=== PATIENT | female | born 1940 | race Caucasian/White ===

== ENCOUNTER 2019-12-02 11:02 | Outpatient (CLI) | payer MEDICARE, SELFPAY ==
--- NOTE | ~2019-12-02 | MM_ITS ---
EXAMINATION: MM screening aureliano BI w janene HISTORY: Screening mammogram TECHNIQUE: Craniocaudal and mediolateral oblique 3-D tomosynthesis images were obtained and synthetic 2-D images were generated. CAD analysis was submitted and interpreted. COMPARISON: 07/28/2017 BREAST PARENCHYMAL COMPOSITION: There are scattered areas of fibroglandular density. FINDINGS: There is no evidence of suspicious mass, calcification, or architectural distortion to sugg est malignancy in either breast. There has been no suspicious interval change. IMPRESSION: 1. No mammographic evidence of malignancy. 2. Recommend routine screening mammography in one year. BI-RADS Category 1: Negative Reviewed, dictated and finalized at location A.
== END 2019-12-02 11:03 | disposition home or self-care (01) ==
PROVIDERS: PCP Family Medicine; Visit Provider Nurse Practitioner Family
DX: Z12.31 Encounter for screening mammogram for malignant neoplasm of breast (principal)
CPT/HCPCS: 77063; 77067

== ENCOUNTER 2019-12-03 07:28 | Outpatient (CLI) | payer MEDICARE, SELFPAY ==
--- NOTE | ~2019-12-03 | US_ITS ---
EXAMINATION: US right upper quadrant DATE: 12/03/2019 07:58 INDICATION: Right upper quadrant abdominal pain. TECHNIQUE: Multiple grayscale and Doppler ultrasound images of the abdomen were obtained. COMPARISON: None FINDINGS: The visualized portions of the head and body of the pancreas are normal. The liver is crystal l without focal lesion. There is normal flow in main portal vein. The gallbladder is normal in size a nd contains gallstones. No gallbladder wall thickening or sonographic Zarate sign. The common duct is normal and measures 4 mm. IMPRESSION: 1. Cholelithiasis. No evidence of acute cholecystitis. Reviewed, dictated and finalized at location E.
[2019-12-03 08:52] LABS: Basophils Absolute Auto 0.1 K/mm3 (0.0-0.1); Basophils Percent Auto 0.9 % (0.2-1.2); Eosinophils Absolute Auto 0.1 K/mm3 (0-0.3); Eosinophils Percent Auto 1.8 % (0-4.4); Hematocrit 37.6 % (37.0-47.0); Hemoglobin 12.6 g/dL (12.0-15.0); Immature Granulocyte Absolute 0.02 K/mm3 (0.00-0.031); Immature Granulocyte Percent A 0.3 % (0-0.5); Lymphocytes Percent Auto 20.5 % (18.3-44.2); Mean Corpuscular HGB Conc 33.5 g/dl (32-36); Mean Corpuscular Hemoglobin 29.2 pg (26-34); Mean Platelet Volume 9.2 fl (7.4-10.4); Monocytes Absolute Auto 0.6 K/mm3 (0.1-0.6); Monocytes Percent Auto 8.6 % (2.6-8.5); Neutrophils Absolute Auto 4.7 K/mm3 (1.3-6.7); Neutrophils Percent Auto 67.9 % (45.5-73.1); Platelet Count Result 285 k/mm3 (150-375); Red Blood Count 4.32 M/mm3 (4.2-5.4); Red Cell Distribution Width 13.8 % (11.5-14.5); White Blood Count 6.8 K/mm3 (4.5-10.0)
[2019-12-03 09:00] LABS: Hemoglobin A1C 5.8 % (<5.7)
[2019-12-03 09:04] LABS: Alanine Aminotransferase 16 U/L (4-35); Albumin Level 4.5 g/dL (3.5-5.1); Alkaline Phosphatase 68 U/L (38-126); Amylase 61 U/L (30-110); Aspartate Amino Transferase 24 U/L (14-36); Bilirubin,Total 0.4 mg/dL (0.2-1.3); Blood Urea Nitrogen 21 mg/dL (7-17); Calcium 9.1 mg/dL (8.4-10.2); Carbon Dioxide 28 mmol/L (22-30); Chloride 99 mmol/L (98-107); Cholesterol 208 mg/dL (0-200); Estimated Glomerular Filt Rate 44; Glucose 100 mg/dL (65-105); HDL Direct 50 mg/dL; Lipase 128 U/L (23-300); Potassium 3.9 mmol/L (3.4-5.0); Sodium 136 mmol/L (137-145); Triglycerides 119 mg/dL (<150)
[2019-12-03 09:15] LABS: LDL Cholesterol Direct 123 mg/dL
[2019-12-03 09:33] LABS: Total Triiodothyronine (T3) 1.64 NG/ML (0.97-1.69)
[2019-12-03 09:50] LABS: Free T4 Free Thyroxine 1.07 ng/mL (0.78-2.19); Vitamin D 25 Hydroxy 66.3 ng/mL
== END 2019-12-03 07:29 | disposition home or self-care (01) ==
PROVIDERS: Nurse Practitioner Family; PCP Family Medicine; Visit Provider Family Medicine
DX: R10.11 Right upper quadrant pain (principal); R14.0 Abdominal distension (gaseous); I10 Essential (primary) hypertension; E78.2 Mixed hyperlipidemia; R73.01 Impaired fasting glucose; E55.9 Vitamin D deficiency, unspecified; Z13.0 Encounter for screening for diseases of the blood and blood-forming organs and certain disorders involving the immune mechanism; Z13.6 Encounter for screening for cardiovascular disorders; Z13.220 Encounter for screening for lipoid disorders; Z13.29 Encounter for screening for other suspected endocrine disorder; Z13.1 Encounter for screening for diabetes mellitus; R80.9 Proteinuria, unspecified
CPT/HCPCS: 36415; 76705; 80053; 80061; 82150; 82306; 83036; 83690; 84439; 84443; 84480; 85025

== ENCOUNTER 2020-06-11 14:48 | Outpatient (CLI) | payer MEDICARE, SELFPAY ==
[2020-06-11 16:03] LABS: Total Triiodothyronine (T3) 1.05 NG/ML (0.97-1.69)
[2020-06-11 16:10] LABS: Free T4 Free Thyroxine 1.02 ng/mL (0.78-2.19)
== END 2020-06-11 14:49 | disposition home or self-care (01) ==
PROVIDERS: PCP Family Medicine; Visit Provider Nurse Practitioner
DX: F41.9 Anxiety disorder, unspecified (principal); F51.05 Insomnia due to other mental disorder; L65.9 Nonscarring hair loss, unspecified
CPT/HCPCS: 36415; 84439; 84443; 84480

== ENCOUNTER 2020-12-11 10:35 | Outpatient (CLI) | payer MEDICARE, SELFPAY ==
--- NOTE | ~2020-12-11 | MMUS_ITS ---
EXAMINATION: MM diagnostic aureliano BI w janene, US breast RT limited HISTORY: Pain at the 12:00 location of the right breast TECHNIQUE: Craniocaudal, mediolateral, and mediolateral oblique 3-D tomosynthesis images of the breas ts were performed and synthetic 2-D images were generated. CAD analysis was submitted and interpreted . High resolution limited right breast ultrasound was performed. COMPARISON: 12/02/2019, 07/28/2017, 07/02/2008 BREAST PARENCHYMAL COMPOSITION: The breasts are almost entirely fatty. FINDINGS: MAMMOGRAPHIC FINDINGS: There is no evidence of suspicious mass, calcification, or architectural distortion in either breast to suggest malignancy. There has been no suspicious interval change. ULTRASOUND: There is no evidence of focal abnormal solid or cystic mass in the vicinity of the patient's reported right breast pain. IMPRESSION: 1. No specific mammographic or sonographic correlate is identified for the patient's reported right b reast pain Further evaluation at this time should be based on clinical assessment. Continued follow-u p physical examination is recommended. 2. Recommend routine screening mammography in one year. BI-RADS Category 1: Negative Reviewed, dictated and finalized at location A. IMPRESSION: 1. No specific mammographic or sonographic correlate is identified for the tamie ent's reported right breast pain Further evaluation at this time should be base d on clinical assessment. Continued follow-up physical examination is recommend ed. 2. Recommend routine screening mammography in one year. BI-RADS Category 1: Negative
== END 2020-12-11 10:36 | disposition home or self-care (01) ==
LOC: ANHIMG 10:37
PROVIDERS: PCP Family Medicine; Visit Provider Nurse Practitioner
DX: N64.4 Mastodynia (principal)
CPT/HCPCS: 76642; 77062; 77066; G0279

== ENCOUNTER → 2021-03-16 04:04 | Outpatient (CLI) | payer MEDICARE, SELFPAY ==
[2021-03-16 18:19] LABS: SARS-CoV-2 RNA PCR Negative
== END ==
PROVIDERS: PCP Family Medicine; Visit Provider Family Medicine
DX: Z20.822 Contact with and (suspected) exposure to COVID-19 (principal)
CPT/HCPCS: C9803; U0003; U0005

== ENCOUNTER 2021-04-13 09:05 | Outpatient (CLI) | payer MEDICARE, SELFPAY ==
--- NOTE | ~2021-04-13 | XR_ITS ---
EXAMINATION:XR cervical spine 4-5V DATE: 04/13/2021 10:37 INDICATION: Neck pain TECHNIQUE: AP, lateral, lateral swimmers and odontoid views of the cervical spine are provided. COMPARISON: None FINDINGS: Alignment is normal. The odontoid is intact. No fracture is identified. The vertebral body heights are normal. There is severe loss of intervertebral disc space height at C4-5 and moderate los s of intervertebral disc space height at C3-4 and C5-6. Small degenerative osteophytes project from t he anterior endplates of multiple vertebral bodies. There is moderate multilevel facet and uncoverteb ral joint osteoarthritis Prevertebral soft tissues are normal. IMPRESSION: 1. Moderate cervical spondylosis without acute findings. Reviewed, dictated and finalized at location A.
--- NOTE | ~2021-04-13 | XR_ITS ---
XR shoulder RT min 2V 04/13/2021 10:37 Indication: Shoulder pain Procedure: 4 views right shoulder Comparison: 4 views right shoulder Findings: There is advanced osteoarthritis the right shoulder including the glenohumeral and acromioclavicular joints. No fracture or traumatic malalignment. No significant soft tissue abnormality. No foreign bod ies. 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 Reviewed, dictated and finalized at location B. 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
[2021-04-13 10:29] LABS: Basophils Absolute Auto 0.1 K/mm3 (0.0-0.1); Basophils Percent Auto 1.1 % (0.2-1.2); Eosinophils Absolute Auto 0.2 K/mm3 (0-0.3); Eosinophils Percent Auto 2.7 % (0-4.4); Hematocrit 36.5 % (37.0-47.0); Immature Granulocyte Absolute 0.02 K/mm3 (0.00-0.031); Immature Granulocyte Percent A 0.3 % (0-0.5); Lymphocytes Absolute Auto 1.63 K/mm3 (0.9-3.2); Lymphocytes Percent Auto 25.5 % (18.3-44.2); Mean Corpuscular HGB Conc 32.9 g/dl (32-36); Mean Corpuscular Hemoglobin 29.8 pg (26-34); Mean Corpuscular Volume 90.6 fl (80-100); Mean Platelet Volume 9.1 fl (7.4-10.4); Monocytes Absolute Auto 0.5 K/mm3 (0.1-0.6); Neutrophils Percent Auto 62.4 % (45.5-73.1); Platelet Count Result 294 k/mm3 (150-375); Red Blood Count 4.03 M/mm3 (4.2-5.4); Red Cell Distribution Width 13.2 % (11.5-14.5); White Blood Count 6.4 K/mm3 (4.5-10.0)
[2021-04-13 10:36] LABS: Alanine Aminotransferase 19 U/L (4-35); Albumin Level 4.4 g/dL (3.5-5.1); Alkaline Phosphatase 56 U/L (38-126); Anion Gap 9 mmol/L (8-16); Aspartate Amino Transferase 23 U/L (14-36); Bilirubin,Total 0.5 mg/dL (0.2-1.3); Blood Urea Nitrogen 27 mg/dL (7-17); Calcium 9.5 mg/dL (8.4-10.2); Carbon Dioxide 31 mmol/L (22-30); Chloride 102 mmol/L (98-107); Cholesterol 194 mg/dL (0-200); Estimated Glomerular Filt Rate 43; Glucose 104 mg/dL (65-110); HDL Direct 61 mg/dL; Potassium 4.1 mmol/L (3.4-5.0); Sodium 142 mmol/L (137-145); Triglycerides 96 mg/dL (<150)
[2021-04-13 10:47] LABS: LDL Cholesterol Direct 100 mg/dL
[2021-04-13 10:50] LABS: Creatinine Urine 199.2 mg/dL
[2021-04-13 10:54] LABS: MALB Creatinine Ratio 4.2 mg/g (0-30); Microalbumin Urine Random 8.4 mg/L (0-16.7)
[2021-04-13 11:06] LABS: Free T4 Free Thyroxine 0.98 ng/mL (0.78-2.19); Total Triiodothyronine (T3) 1.63 NG/ML (0.97-1.69); Vitamin D 25 Hydroxy 59.3 ng/mL
[2021-04-13 11:29] LABS: Hemoglobin A1C 5.6 % (<5.7)
== END 2021-04-13 09:06 | disposition home or self-care (01) ==
PROVIDERS: PCP Family Medicine; Visit Provider Nurse Practitioner
DX: E55.9 Vitamin D deficiency, unspecified (principal); Z13.29 Encounter for screening for other suspected endocrine disorder; Z13.220 Encounter for screening for lipoid disorders; Z13.6 Encounter for screening for cardiovascular disorders; Z13.0 Encounter for screening for diseases of the blood and blood-forming organs and certain disorders involving the immune mechanism; Z00.00 Encounter for general adult medical examination without abnormal findings; Z13.1 Encounter for screening for diabetes mellitus; R80.9 Proteinuria, unspecified; R53.83 Other fatigue; E78.2 Mixed hyperlipidemia; I10 Essential (primary) hypertension; M47.812 Spondylosis without myelopathy or radiculopathy, cervical region; M19.011 Primary osteoarthritis, right shoulder
CPT/HCPCS: 36415; 72050; 73030; 80053; 80061; 82043; 82306; 83036; 84439; 84443; 84480; 85025

== ENCOUNTER 2022-10-11 14:36 | Outpatient (CLI) | payer MEDICARE, SELFPAY ==
--- NOTE | ~2022-10-11 | XR_ITS ---
XR lumbar spine 6V w bending 10/11/2022 15:20 Indication: Back pain Procedure: 7 views lumbar spine Comparison: No prior studies for comparison. Findings: There is disc narrowing at all lumbar levels. There is grade 1 degenerative spondylolisthes is at L4-5. There is moderate multilevel facet hypertrophy of the mid and lower lumbar spine. No sign ificant alteration of alignment with flexion/extension. No acute fracture or traumatic malalignment. There is levoscoliosis centered at L3. Sacral foramen are symmetric. Impression: 1: Severe lumbar spondylosis with levoscoliosis. Reviewed, dictated and finalized at location A. Impression: 1: Severe lumbar spondylosis with levoscoliosis.
== END 2022-10-11 14:37 ==
PROVIDERS: PCP Internal Medicine; Visit Provider Nurse Practitioner Family
DX: M47.816 Spondylosis without myelopathy or radiculopathy, lumbar region (principal)
CPT/HCPCS: 72114